=== PATIENT | male | born 1985 | race Hispanic/Latino ===

== ENCOUNTER 2020-05-20 11:56 | Emergency (ER) | payer SELFPAY ==
[~2020-05-20] VITALS: Ht 170.2 cm; Wt 50.0 kg
[2020-05-20 14:15] VITALS: BP 139/74
== END 2020-05-20 14:15 | disposition home or self-care (01) | DRG 605 ==
LOC: ED 11:56
DX: S00.432A Contusion of left ear, initial encounter (principal); S10.93XA Contusion of unspecified part of neck, initial encounter; S01.501A Unspecified open wound of lip, initial encounter; B19.20 Unspecified viral hepatitis C without hepatic coma; F17.210 Nicotine dependence, cigarettes, uncomplicated; Y04.2XXA Assault by strike against or bumped into by another person, initial encounter

== ENCOUNTER 2020-07-10 18:14 | Emergency (ER) | payer SELFPAY ==
[~2020-07-10] VITALS: Ht 170.2 cm; Wt 53.6 kg
[2020-07-10] MEDS ORDERED: SILVADENE1 % EX (18:31)
[2020-07-10 19:25] VITALS: BP 118/78
== END 2020-07-10 19:25 | disposition home or self-care (01) | DRG 935 ==
LOC: ED 18:14
PROC: 2W2CX4Z Dressing of Right Lower Arm using Bandage (ICD-10-PCS; principal; 2020-07-10)
DX: T22.211A Burn of second degree of right forearm, initial encounter (principal); F17.200 Nicotine dependence, unspecified, uncomplicated; B19.20 Unspecified viral hepatitis C without hepatic coma; X12.XXXA Contact with other hot fluids, initial encounter; Y93.89 Activity, other specified; Y92.481 Parking lot as the place of occurrence of the external cause